=== PATIENT | male | born 1965 | race African-American/Black ===

== ENCOUNTER 2021-09-24 23:30 | Inpatient (IN) ==
[2021-09-25] MEDS ORDERED: SODIUM CHLORIDE 0.9% 500 ML IV STA (01:19)
[2021-09-25 01:34] LABS: Arterial Base Excess iSTAT 5 MMOL/L (-2.5-2.5); Arterial Bicarbonate iSTAT 30.6 MMOL/L (20-26); Arterial O2 Saturation iSTAT 95 % (95-100); Arterial PCO2 iSTAT 46 MM HG (35-48); Arterial PO2 iSTAT 75 MM HG (80-95); Arterial Total CO2 iSTAT 32 MMO/L (23-27)
[2021-09-25 01:51] LABS: Basophils % 0.1 % (0.0-0.8); Eosinophils # 0.1 10*3/uL (0.0-0.87); Eosinophils % 0.3 % (0.00-10.9); Hemoglobin 8.7 GM/DL (14.0-18.0); Immature Granulocytes % 1.1 %; Lymphocytes # 0.6 10*3/uL (1.4-4.0); Lymphocytes % 3.3 % (21.2-54.2); Mean Corpuscular Volume 96.7 FL (87-102); Mean Platelet Volume 10.9 FL (9.6-12.0); Monocytes # 0.8 10*3/uL (0.11-0.8); Monocytes % 4.5 % (1.7-12.7); NRBC # 0.02 10*3/uL; Neutrophils % 90.7 % (38.7-73.9); Platelet Count 149 T/CUMM (130-400); White Blood Count 18.1 T/CUMM (4-12)
[2021-09-25 02:01] LABS: INR 1.2; PT Patient Result 13.5 SECS (10.1-12.1)
[2021-09-25 02:10] LABS: Alanine Aminotransferase 14 U/L (16-61); Albumin 3.3 G/DL (3.4-5.0); Alkaline Phosphatase 148 U/L (45-117); Aspartate Amino Transferase 17 U/L (0-37); Blood Urea Nitrogen 72 MG/DL (7-18); Calcium 9.4 MG/DL (8.5-10.1); Carbon Dioxide 30 MMOL/L (21-32); Chloride 97 MMOL/L (98-107); Glucose 124 MG/DL (74-106); Potassium 5.1 MMOL/L (3.5-5.1); Sodium 136 MMOL/L (136-145); Total Protein 8.6 G/DL (6.4-8.2)
[2021-09-25 02:18] LABS: Lymphocytes 5 % (20-55); Total Cells Counted 100
[2021-09-25 02:19] LABS: Ovalocytes Few; Platelet Estimate Adequate; Polychromasia Slight
[2021-09-25 02:20] LABS: Tear Drop Cells Slight
[2021-09-25 02:21] LABS: Hypochromia Slight
[2021-09-25] MEDS ORDERED: PIPERACILLIN/TAZOBACTAM 3,375 MG in SODIUM CHLORIDE 0.9% 100 ML IV STA (02:44)
[2021-09-25] MEDS ORDERED: hydrALAZINE 20 MG/1 ML VIAL IV PRN (03:37)
[2021-09-25] MEDS ORDERED: GLUCAGON 1 MG VIAL IM PRN (03:37)
[2021-09-25] MEDS ORDERED: ONDANSETRON 4 MG/2 ML VIAL IV PRN (03:37)
[2021-09-25] MEDS ORDERED: DEXTROSE 10% 250 ML BAG IV PRN (03:54)
[2021-09-25] MEDS ORDERED: VANCOMYCIN INJ 2,500 MG in SODIUM CHLORIDE 0.9% 500 ML IV ONE (05:00)
[2021-09-25] MEDS ORDERED: VANCOMYCIN INJ 1,250 MG in SODIUM CHLORIDE 0.9% 250 ML IV PRN (05:12)
[2021-09-25] MEDS: PANTOPRAZOLE 40 MG TABLET PO SCH (08:58)
[2021-09-25] MEDS: INSULIN LISPRO 100 UNIT/ML SUBCUT SCH ×4 (09:04→20:48)
[2021-09-25] MEDS ORDERED: BACITRACIN OINT 0.9 GM PACK TOP ONE (15:41)
[2021-09-25] MEDS: PIPERACILLIN/TAZOBACTAM 3,375 MG in SODIUM CHLORIDE 0.9% 100 ML IV SCH (16:05)
[2021-09-25] MEDS: ACETAMINOPHEN 325 MG TABLET PO PRN (16:45)
[2021-09-25 16:51] LABS: Folate > 24.00 NG/ML (5.38-24.0); Vitamin B12 812 PG/ML (211-911)
[2021-09-25] MEDS ORDERED: ACETAMINOPHEN 325 MG TABLET ONE (16:52)
[2021-09-25] MEDS ORDERED: VANCOMYCIN INJ 1,250 MG in SODIUM CHLORIDE 0.9% 250 ML IV ONE (21:00)
[2021-09-26] MEDS: PIPERACILLIN/TAZOBACTAM 3,375 MG in SODIUM CHLORIDE 0.9% 100 ML IV SCH ×2 (02:00→17:55)
[2021-09-26] MEDS: ACETAMINOPHEN 325 MG TABLET PO PRN (02:10)
[2021-09-26 05:00] LABS: Basophils % 0.3 % (0.0-0.8); Eosinophils # 0.2 10*3/uL (0.0-0.87); Eosinophils % 1.1 % (0.00-10.9); Hematocrit 25.8 VOL% (42.0-52.0); Hemoglobin 7.9 GM/DL (14.0-18.0); Immature Granulocytes % 0.7 %; Lymphocytes # 0.6 10*3/uL (1.4-4.0); Lymphocytes % 3.9 % (21.2-54.2); Mean Corpuscular HGB Conc 30.6 GM/DL (32-36); Mean Corpuscular Volume 96.6 FL (87-102); Platelet Count 107 T/CUMM (130-400); Red Blood Count 2.67 MC/CUMM (3.8-5.5); Red Cell Distribution Width 18.9 % (9.3-17.3); White Blood Count 14.4 T/CUMM (4-12)
[2021-09-26 05:20] LABS: Eosinophils 4 % (0-10); Hypochromia Slight; Lymphocytes 5 % (20-55); Microcytosis Slight; Total Cells Counted 100
[2021-09-26 05:21] LABS: Calcium 9.3 MG/DL (8.5-10.1); Potassium 5.3 MMOL/L (3.5-5.1)
[2021-09-26] MEDS: INSULIN LISPRO 100 UNIT/ML SUBCUT SCH ×4 (08:28→21:09)
[2021-09-26] MEDS: PANTOPRAZOLE 40 MG TABLET PO SCH (08:52)
[2021-09-26] MEDS ORDERED: GABAPENTIN 400 MG CAPSULE PO PRN (14:03)
[2021-09-26] MEDS ORDERED: VANCOMYCIN INJ 1,250 MG in SODIUM CHLORIDE 0.9% 250 ML IV ONE (17:00)
[2021-09-26] MEDS: NON-FORMULARY MEDICATION (Ferric Citrate [Auryxia] 210 mg iron Tablet) PO SCH (17:55)
[2021-09-26] MEDS: DORZOLAMIDE/TIMOLOL OPH SOLN 10 ML BOTTLE LEFT EYE SCH (21:09)
[2021-09-26] MEDS: ZINC OXIDE PASTE 113 GM TUBE TOP PRN (21:09)
[2021-09-27] MEDS: PIPERACILLIN/TAZOBACTAM 3,375 MG in SODIUM CHLORIDE 0.9% 100 ML IV SCH ×2 (05:19→17:43)
[2021-09-27 06:03] LABS: Basophils % 0.3 % (0.0-0.8); Eosinophils # 0.4 10*3/uL (0.0-0.87); Eosinophils % 3.6 % (0.00-10.9); Hematocrit 26.2 VOL% (42.0-52.0); Hemoglobin 7.9 GM/DL (14.0-18.0); Immature Granulocytes % 0.7 %; Immature Granulocytes Absolute 0.08 #; Lymphocytes # 0.6 10*3/uL (1.4-4.0); Lymphocytes % 4.8 % (21.2-54.2); Mean Corpuscular HGB Conc 30.2 GM/DL (32-36); Mean Corpuscular Volume 96.7 FL (87-102); Mean Platelet Volume 11.1 FL (9.6-12.0); Monocytes % 8.4 % (1.7-12.7); Neutrophils % 82.2 % (38.7-73.9); Platelet Count 104 T/CUMM (130-400); Red Blood Count 2.71 MC/CUMM (3.8-5.5); Red Cell Distribution Width 18.6 % (9.3-17.3); White Blood Count 12.2 T/CUMM (4-12)
[2021-09-27 06:18] LABS: Calcium 9.1 MG/DL (8.5-10.1); Osmolality,Calculated 294.1 MOS/KG (273-304); Potassium 5.5 MMOL/L (3.5-5.1)
[2021-09-27 06:24] LABS: Eosinophils 6 % (0-10); Hypochromia Slight; Lymphocytes 3 % (20-55); Microcytosis Slight; Platelet Estimate Decreased; Total Cells Counted 100
[2021-09-27] MEDS: INSULIN LISPRO 100 UNIT/ML SUBCUT SCH ×4 (07:30→20:52)
[2021-09-27] MEDS ORDERED: ALBUMIN 25% 12.5 GM/50 ML VIAL IV ONE ×2 (08:20→08:24)
[2021-09-27] MEDS: MULTIVITAMIN (BEROCCA) TABLET PO SCH (09:52)
[2021-09-27] MEDS: ARIPiprazole 10 MG TABLET PO SCH (09:52)
[2021-09-27] MEDS: PANTOPRAZOLE 40 MG TABLET PO SCH (09:52)
[2021-09-27] MEDS: ZINC OXIDE PASTE 113 GM TUBE TOP PRN (09:53)
[2021-09-27] MEDS: NON-FORMULARY MEDICATION (Ferric Citrate [Auryxia] 210 mg iron Tablet) PO SCH ×3 (09:53→17:43)
[2021-09-27] MEDS: SKIN HEALING OINT (AQUAPHOR) 50 GM TUBE TOP SCH (09:53)
[2021-09-27] MEDS: DORZOLAMIDE/TIMOLOL OPH SOLN 10 ML BOTTLE LEFT EYE SCH ×2 (09:53→20:51)
[2021-09-27] MEDS ORDERED: SODIUM POLYSTYRENE SULFATE 15 GM/60 ML BOTTLE PO STA (13:51)
[2021-09-27] MEDS ORDERED: VANCOMYCIN INJ 1,250 MG in SODIUM CHLORIDE 0.9% 250 ML IV ONE (17:00)
[2021-09-28] MEDS: PIPERACILLIN/TAZOBACTAM 3,375 MG in SODIUM CHLORIDE 0.9% 100 ML IV SCH ×2 (02:36→16:08)
[2021-09-28] MEDS: INSULIN LISPRO 100 UNIT/ML SUBCUT SCH ×4 (07:50→22:02)
[2021-09-28 08:08] LABS: Basophils % 0.2 % (0.0-0.8); Eosinophils # 0.5 10*3/uL (0.0-0.87); Eosinophils % 5.4 % (0.00-10.9); Hematocrit 27.1 VOL% (42.0-52.0); Hemoglobin 8.1 GM/DL (14.0-18.0); Immature Granulocytes % 0.6 %; Immature Granulocytes Absolute 0.05 #; Lymphocytes # 0.5 10*3/uL (1.4-4.0); Mean Corpuscular HGB Conc 29.9 GM/DL (32-36); Mean Corpuscular Volume 96.8 FL (87-102); Mean Platelet Volume 11.3 FL (9.6-12.0); Monocytes # 0.8 10*3/uL (0.11-0.8); Monocytes % 9.1 % (1.7-12.7); Neutrophils % 78.7 % (38.7-73.9); Platelet Count 115 T/CUMM (130-400); Red Cell Distribution Width 18.1 % (9.3-17.3)
[2021-09-28 08:27] LABS: Calcium 9.1 MG/DL (8.5-10.1); Osmolality,Calculated 294.7 MOS/KG (273-304); Potassium 4.1 MMOL/L (3.5-5.1)
[2021-09-28] MEDS: DORZOLAMIDE/TIMOLOL OPH SOLN 10 ML BOTTLE LEFT EYE SCH ×2 (08:41→21:00)
[2021-09-28] MEDS: MULTIVITAMIN (BEROCCA) TABLET PO SCH (08:41)
[2021-09-28] MEDS: ARIPiprazole 10 MG TABLET PO SCH (08:41)
[2021-09-28] MEDS: PANTOPRAZOLE 40 MG TABLET PO SCH (08:41)
[2021-09-28] MEDS: NON-FORMULARY MEDICATION (Ferric Citrate [Auryxia] 210 mg iron Tablet) PO SCH ×3 (08:41→17:29)
[2021-09-28] MEDS: SKIN HEALING OINT (AQUAPHOR) 50 GM TUBE TOP SCH (08:56)
[2021-09-29] MEDS: PIPERACILLIN/TAZOBACTAM 3,375 MG in SODIUM CHLORIDE 0.9% 100 ML IV SCH (03:54)
[2021-09-29] MEDS: INSULIN LISPRO 100 UNIT/ML SUBCUT SCH ×4 (08:00→21:32)
[2021-09-29] MEDS: NON-FORMULARY MEDICATION (Ferric Citrate [Auryxia] 210 mg iron Tablet) PO SCH ×3 (08:45→17:00)
[2021-09-29] MEDS ORDERED: LEVOFLOXACIN INJ 500 MG/100 ML PREMIX IV ONE (13:07)
[2021-09-29] MEDS: MULTIVITAMIN (BEROCCA) TABLET PO SCH (13:13)
[2021-09-29] MEDS: DORZOLAMIDE/TIMOLOL OPH SOLN 10 ML BOTTLE LEFT EYE SCH ×2 (13:14→21:36)
[2021-09-29] MEDS: PANTOPRAZOLE 40 MG TABLET PO SCH (13:14)
[2021-09-29] MEDS: SKIN HEALING OINT (AQUAPHOR) 50 GM TUBE TOP SCH (13:14)
[2021-09-29] MEDS: ARIPiprazole 10 MG TABLET PO SCH (13:14)
[2021-09-30 06:07] LABS: Basophils # 0.1 10*3/uL (0.0-0.2); Basophils % 0.5 % (0.0-0.8); Eosinophils # 0.6 10*3/uL (0.0-0.87); Eosinophils % 6.5 % (0.00-10.9); Hematocrit 30.3 VOL% (42.0-52.0); Hemoglobin 9.3 GM/DL (14.0-18.0); Immature Granulocytes % 2.6 %; Immature Granulocytes Absolute 0.25 #; Lymphocytes # 1.2 10*3/uL (1.4-4.0); Lymphocytes % 12.8 % (21.2-54.2); Mean Corpuscular HGB Conc 30.7 GM/DL (32-36); Mean Corpuscular Volume 95.9 FL (87-102); Mean Platelet Volume 11.1 FL (9.6-12.0); Monocytes # 0.9 10*3/uL (0.11-0.8); Monocytes % 9.3 % (1.7-12.7); NRBC # 0.02 10*3/uL; Neutrophils % 68.3 % (38.7-73.9); Platelet Count 134 T/CUMM (130-400); Red Blood Count 3.16 MC/CUMM (3.8-5.5); Red Cell Distribution Width 17.8 % (9.3-17.3); White Blood Count 9.7 T/CUMM (4-12)
[2021-09-30 06:22] LABS: Osmolality,Calculated 293.5 MOS/KG (273-304); Potassium 4.5 MMOL/L (3.5-5.1)
[2021-09-30] MEDS: INSULIN LISPRO 100 UNIT/ML SUBCUT SCH ×4 (07:42→15:58)
[2021-09-30] MEDS: ARIPiprazole 10 MG TABLET PO SCH (09:37)
[2021-09-30] MEDS: MULTIVITAMIN (BEROCCA) TABLET PO SCH (09:37)
[2021-09-30] MEDS: ZINC OXIDE PASTE 113 GM TUBE TOP PRN (09:38)
[2021-09-30] MEDS: SKIN HEALING OINT (AQUAPHOR) 50 GM TUBE TOP SCH (09:38)
[2021-09-30] MEDS: DORZOLAMIDE/TIMOLOL OPH SOLN 10 ML BOTTLE LEFT EYE SCH (09:38)
[2021-09-30] MEDS: NON-FORMULARY MEDICATION (Ferric Citrate [Auryxia] 210 mg iron Tablet) PO SCH ×3 (09:38→16:00)
[2021-09-30] MEDS: PANTOPRAZOLE 40 MG TABLET PO SCH (09:40)
[2021-09-30] MEDS ORDERED: LEVOFLOXACIN 250 MG TABLET PO SCH (12:30)
[2021-09-30 16:22] VITALS: BP 135/63
[2021-10-01] MEDS ORDERED: LEVOFLOXACIN INJ 250 MG/50 ML PREMIX IV SCH (09:00)
== END 2021-09-30 17:23 | disposition home health service (06) | DRG 871 ==
LOC: EDBD → EDUNIT# → N.ED 23:30 → N.EDINP 09-25 03:37 → N.TELEN 09-25 17:55
PROVIDERS: ADMIT Internal Medicine; ATTEND Internal Medicine